=== PATIENT | female | born 1985 ===

== ENCOUNTER 2016-07-28 00:13 | Inpatient (IN) ==
[2016-07-28] MEDS ORDERED: BUTORPHANOL 2 MG/ML VIAL IV PRN (00:46)
[2016-07-28] MEDS ORDERED: ONDANSETRON 4 MG/2 ML VIAL IV PRN ×2 (00:46→12:35)
[2016-07-28] MEDS ORDERED: ACETAMINOPHEN 325 MG TABLET PO PRN ×2 (00:46→12:35)
[2016-07-28] MEDS ORDERED: MEPERIDINE 50 MG/1 ML VIAL IV PRN (00:46)
[2016-07-28] MEDS: LACTATED RINGERS 1,000 ML IV SCH ×3 (01:00→19:22)
[2016-07-28 01:26] LABS: Basophils % 0.2 % (0.0-0.8); Eosinophils # 0.1 10*3/uL (0.0-0.87); Hematocrit 36.7 VOL% (35.7-47.0); Hemoglobin 12.4 GM/DL (12.0-16.0); Immature Granulocytes % 0.4 %; Immature Granulocytes Absolute 0.04 #; Lymphocytes # 2.2 10*3/uL (1.4-4.0); Lymphocytes % 23.9 % (21.3-54.2); Mean Corpuscular HGB Conc 33.8 GM/DL (32-36); Mean Corpuscular Hemoglobin 29 PG (27-34); Mean Platelet Volume 9.7 FL (9.6-12.0); Monocytes # 0.7 10*3/uL (0.11-0.8); Monocytes % 7.4 % (1.7-12.7); Neutrophils # 6.1 10*3/uL (1.4-7.4); Neutrophils % 67.1 % (38.7-73.9); Platelet Count 272 T/CUMM (130-400); Red Blood Count 4.22 MC/CUMM (3.8-5.5); Red Cell Distribution Width 12.9 % (9.3-17.3); White Blood Count 9.1 T/CUMM (4-12)
[2016-07-28 01:55] LABS: Albumin 2.7 G/DL (3.4-5.0); Bilirubin,Total 0.4 MG/DL (0.2-1.0); Calcium 8.4 MG/DL (8.5-10.1); Osmolality,Calculated 275.4 MOS/KG (273-304); Potassium 3.7 MMOL/L (3.5-5.1); Total Protein 6.2 G/DL (6.4-8.3)
[2016-07-28] MEDS ORDERED: CITRIC ACID/SODIUM CITRATE 30 ML UDCUP PO ONE (06:41)
[2016-07-28] MEDS ORDERED: FAMOTIDINE 20 MG/2 ML VIAL IV ONE (06:41)
[2016-07-28] MEDS ORDERED: ePHEDrine 50 MG/ML AMP IV PRN (06:41)
[2016-07-28] MEDS ORDERED: miSOPROStol 200 MCG TABLET ONE (07:47)
[2016-07-28] MEDS ORDERED: fentaNYL 2 MCG/ROPIV 0.2% EPID 150 ML EPIDURAL ONE (07:47)
[2016-07-28] MEDS ORDERED: ePHEDrine 50 MG/ML AMP ONE (07:49)
--- NOTE | 2016-07-28 08:56 | OB/GYN History & Physical ---
History of Present Illness Chief complaint: 39 weeks History of present illness: Ms. Mccartney is a 30 year old female Multiparous female at 39 weeks gestation presented for induction of labor at term Home Medications Medication Instructions Recorded Confirmed Type Multivitamin () [ 1 tablet PO DAILY 07/28/16 07/28/16 History Vitamin] Allergies Allergy/AdvReac Type Severity Reaction Status Date / Time No Known Allergies Allergy Unverified 07/28/16 00:41 12 point system: reviewed and no additional remarkable complaints except as stated Medical,Surgical,& Family Hx - Family History Family History: Reports;: Family Diabetes (mother, father) Denies;: Family Anesthesia Reaction, Family Cancer, Family Heart Disease, Family Hematology, Family Hypertension, Family Psychiatric Problems, Family Stroke, Additional Family History - Social History Smoking Status: Never smoker Frequency of Alcohol Use: None Type of Drug Use: None Exam CERTIFIED PHARMACY TECH - Constitutional Vitals: Vital Signs Temp Pulse Resp BP Pulse Ox 07/28/16 04:00 98.1 F 64 18 111/61 07/28/16 00:23 97.7 F 64 18 117/65 98 General appearance: no acute distress - Antepartum / Post Antepartum Exam Cervix -Dilatation: 8-9 cm Effacement: 70% Station: -2 Rupture: Artificial rupture membranes with clear fluid Presentation: Vertex Heart Rate: 140s-150s with occasional variable decelerations immediately post epidural seem to have resolved [place]: Contractions every 2-4 minutes - Head Head exam: Present: normocephalic - Neck Neck exam: Present: normal inspection - Respiratory Respiratory exam: Present: clear to auscultation bilaterally - Cardiovascular Cardiovascular exam: Present: regular rate and rhythm - GI/Abdominal GI/Abdominal exam: Present: normal bowel sounds, soft - Extremities Exam Extremities exam: Present: normal inspection - Back Exam Back exam: Present: normal inspection - Neurological Exam Neurological exam: Present: alert, oriented X3 - Psychiatric Psychiatric exam: Present: normal affect, normal mood - Skin Skin exam: Present: normal color, warm Assessment and Plan (1) 39 weeks gestation of Status: Acute Assessment and plan: Patient comfortable with epidural. Expect vaginal delivery. Current Visit: Yes Results - Labs CBC & BMP: 07/28/16 01:20 07/28/16 01:20
[2016-07-28] MEDS ORDERED: OXYTOCIN/LR 20 UNIT/1,000 ML BAG IV ONE ×2 (08:58→12:35)
[2016-07-28] MEDS ORDERED: OXYTOCIN/LR 20 UNIT/1,000 ML BAG IV SCH (11:30)
[2016-07-28] MEDS ORDERED: HYDROCORTISONE 2.5% RECTAL CREAM 30 GM TUBE TOP PRN (12:35)
[2016-07-28] MEDS ORDERED: MEASLES/MUMPS/RUBELLA VACCINE 0.5 ML VIAL SUBCUT ONE (12:35)
[2016-07-28] MEDS ORDERED: BENZOCAINE 20%/MENTHOL 0.5% SPRAY 56 GM CAN TOP PRN (12:35)
[2016-07-28] MEDS ORDERED: RHO(D) IMMUNE GLOBULIN 300 MCG SYRINGE IM ONE (12:35)
[2016-07-28] MEDS ORDERED: LANOLIN 50% CREAM 0.3 OZ TUBE TOP PRN (12:35)
[2016-07-28] MEDS ORDERED: BISACODYL 10 MG SUPP RECTAL PRN (12:35)
[2016-07-28] MEDS ORDERED: WITCH HAZEL PADS 100/JAR TOP PRN (12:35)
[2016-07-28] MEDS ORDERED: oxyCODONE/ACETAMINOPHEN 5-325 MG TABLET PO PRN (12:35)
[2016-07-28] MEDS ORDERED: DIPH/TET/ACEL PERT BOOSTER VACCINE 0.5 ML VIAL IM ONE (12:35)
--- NOTE | 2016-07-28 12:35 | Operative Note ---
Date of procedure: 07/28/16 Procedure Preformed: Patient delivered a liveborn male infant via spontaneous vaginal delivery via vacuum assistance. Vacuum was applied to baby's head 3 with total application time less than 1 minute baby's head was delivered in the OP position. The baby' s nose mouth bulb suctioned the perineum. Anterior posterior shoulders followed by the body was delivered with ease. Status post internal after" was doubly clamped and cut. Cord blood was sent. Placenta was delivered spontaneously and intact with three-vessel cord. The uterus was massaged and was found to confirm a well contracted. The patient sustained no lacerations. Birthweight 8 lbs. 1 oz. Apgars []. Baby and mother stable. And the procedure all sponge lap counts correct 2. Surgeon / Physician: Finn Chaves Post-op diagnosis: same Findings: Liveborn male weight 8 lbs. 1 oz. Apgars 8 9 Specimens: none sent Estimated blood loss: other (100 mL) Anesthesia: epidural Disposition: floor
[2016-07-28] MEDS: IBUPROFEN 800 MG TABLET PO PRN (17:10)
[2016-07-28] MEDS: oxyCODONE/ACETAMINOPHEN 5-325 MG TABLET PO PRN (17:10)
[2016-07-28] MEDS: DOCUSATE SODIUM 100 MG CAPSULE PO SCH (21:19)
[2016-07-29 06:23] LABS: Basophils % 0.3 % (0.0-0.8); Eosinophils # 0.2 10*3/uL (0.0-0.87); Eosinophils % 1.3 % (0.00-10.9); Hematocrit 33.4 VOL% (35.7-47.0); Hemoglobin 11.2 GM/DL (12.0-16.0); Immature Granulocytes % 0.6 %; Immature Granulocytes Absolute 0.07 #; Mean Corpuscular HGB Conc 33.5 GM/DL (32-36); Mean Corpuscular Hemoglobin 29 PG (27-34); Mean Corpuscular Volume 86.5 FL (87-102); Mean Platelet Volume 9.9 FL (9.6-12.0); Monocytes # 0.9 10*3/uL (0.11-0.8); Monocytes % 7.3 % (1.7-12.7); Neutrophils % 65.5 % (38.7-73.9); Platelet Count 232 T/CUMM (130-400); Red Blood Count 3.86 MC/CUMM (3.8-5.5); Red Cell Distribution Width 13.4 % (9.3-17.3); White Blood Count 12.2 T/CUMM (4-12)
--- NOTE | 2016-07-29 08:48 | OB/GYN Progress Note ---
Assessment and Plan (1) 39 weeks gestation of Status: Acute Assessment and plan: Patient comfortable with epidural. Expect vaginal delivery. Current Visit: Yes (2) Vaginal delivery Status: Acute Assessment and plan: Routine care with discharge planning in a.m. Current Visit: Yes NEWSPAPER PHOTOJOURNALIST - PN: Subj Interval history: Patient doing well. No complaints Exam NEWSPAPER PHOTOJOURNALIST - Constitutional Vitals: Vital Signs Temp Pulse Resp BP Pulse Ox 07/29/16 07:30 97.4 F L 62 18 100/54 95 07/29/16 04:00 97.8 F 56 L 18 93/58 99 07/29/16 00:00 97.0 F L 59 L 18 115/68 99 07/28/16 20:00 98.2 F 77 18 95/69 99 07/28/16 18:35 53 L 20 122/76 97 07/28/16 17:35 64 20 121/71 97 07/28/16 16:35 65 18 112/68 97 07/28/16 16:05 64 20 121/74 97 07/28/16 15:35 97.8 F 59 L 20 120/85 97 General appearance: no acute distress - Antepartum / Post Post Exam Abdomen obstetrics: Present: bowel sounds normal Vagina: Present: normal moisture Uterus exam: Present: normal size, normal contour Anus/Rectum: Present: normal perianal skin - Head Head exam: Present: normocephalic - ENT ENT exam: Present: normal exam - Neck Neck exam: Present: normal inspection - Respiratory Respiratory exam: Present: clear to auscultation bilaterally - Cardiovascular Cardiovascular exam: Present: regular rate and rhythm - GI/Abdominal GI/Abdominal exam: Present: normal bowel sounds, soft - Extremities Exam Extremities exam: Present: normal inspection - Back Exam Back exam: Present: normal inspection - Neurological Exam Neurological exam: Present: alert, oriented X3 - Psychiatric Psychiatric exam: Present: normal affect, normal mood - Skin Skin exam: Present: normal color, warm Results - Labs CBC & BMP: 07/29/16 06:11 07/28/16 01:20
--- NOTE | 2016-07-29 08:50 | Discharge Summary ---
Hospital Course - Hospital Course Hospital Course: This is a 30-year-old female who delivered a liveborn male via spontaneous vaginal delivery on 07/28/2016. Hospital course unremarkable day #2 she was ready for discharge. Diagnosis - Discharge Diagnosis (1) 39 weeks gestation of Status: Acute (2) Vaginal delivery Status: Acute Discharge Plan - Discharge Data Disposition: Disch To Home/Self Care Condition at Discharge: Stable Discharge Diet: advance to your usual diet Activity: resume usual activities as tolerated (Pelvic rest) Hygiene: may shower Weight Bearing at Discharge: weight bear as tolerated Contact your physician if you experience:: fever over 101, Difficulty voiding, Redness or swelling, Nausea/Vomiting, Shortness of breath, Bleeding, pain uncontrolled by pain medications - Discharge Medications New Ibuprofen Tab [Motrin Tab] 800 mg PO Q6H PRN #30 tablet PRN Reason: Pain Moderate (4-7) No Action Multivitamin () [ Vitamin] 1 tablet PO DAILY - Follow Up or Referral Follow Up: Finn Chaves MD [Physician] - 1 Month - Forms/Instructions Exam - Constitutional Vitals: Period Temp Pulse Resp BP Sys/Kennedy Pulse Ox Last 24 Hr 97.0 F-98.2 F 53-77 18-20 93-122/54-85 95-99 General appearance: no acute distress - Head Head exam: Present: normocephalic - Neck Neck exam: Present: normal inspection - Respiratory Respiratory exam: Present: clear to auscultation bilaterally - Cardiovascular Cardiovascular exam: Present: regular rate and rhythm - GI/Abdominal GI/Abdominal exam: Present: normal bowel sounds, soft - Extremities Exam Extremities exam: Present: normal inspection - Back Exam Back exam: Present: normal inspection - Neurological Exam Neurological exam: Present: alert, oriented X3 - Psychiatric Psychiatric exam: Present: normal affect, normal mood - Skin Skin exam: Present: normal color, warm Discharge Results Procedures and tests throughout hospitalization: Pending Orders 07/28/16 00:46 Urinalysis Routine Labs on day of discharge: Labs from last 24 hours 07/29/16 06:11 WBC 12.2 H D RBC 3.86 Hgb 11.2 L Hct 33.4 L MCV 86.5 L MCH 29 MCHC 33.5 RDW 13.4 Plt Count 232 MPV 9.9 Neut % (Auto) 65.5 Lymph % (Auto) 25.0 [place] % (Auto) 7.3 Eos % (Auto) 1.3 Baso % (Auto) 0.3 Neut # (Auto) 8.0 H Lymph # (Auto) 3.0 [place] # (Auto) 0.9 H Eos # (Auto) 0.2 Baso # (Auto) 0.0 Immature Gran % 0.6 Nucleated RBC % 0.0 Immature Gran # 0.07 Nucleated RBCs # 0.00 DS: Provider Date of admission: 07/28/16 00:46 Primary care physician: May Thompson MD Attending physician on admission: Finn Chaves MD Consults: 07/28/16 00:46 Consult to Anesthesiology [CONS] Routine Consulting Provider: Reason for Anesthesiology: Epidural Consult Comment: Epidural for pain managment 07/28/16 12:35 Consult to Supervising Broker [CONS] Routine Consult Supervising Broker: Breast Feeding Discharging clinician: Finn Chaves MD
[2016-07-29] MEDS: DOCUSATE SODIUM 100 MG CAPSULE PO SCH ×2 (09:19→20:00)
[2016-07-29] MEDS: IBUPROFEN 800 MG TABLET PO PRN ×2 (10:51→20:00)
[2016-07-29] MEDS: oxyCODONE/ACETAMINOPHEN 5-325 MG TABLET PO PRN (20:00)
[2016-07-30] MEDS: IBUPROFEN 800 MG TABLET PO PRN (05:18)
[2016-07-30 08:05] VITALS: BP 109/65
[2016-07-30] MEDS: DOCUSATE SODIUM 100 MG CAPSULE PO SCH (08:19)
--- NOTE | 2016-08-01 08:41 | Anesthesia Post-Op ---
Anesthesia Post OP - Post Ansesthetic Evaluation Patient seen in post op: Yes Resp: within normal limits CV: within normal limits Mental: within normal limits Temp: within normal limits [id number]: within normal limits Nausea and Vomiting: within normal limits Pain: within normal limits
== END 2016-07-30 11:50 | disposition home or self-care (01) | DRG 775 ==
LOC: N.LDOUT 00:13 → N.LD 00:23 → N.OB 15:14
PROVIDERS: ADMIT Obstetrics & Gynecology; ATTEND Obstetrics & Gynecology